=== PATIENT | male | born 1990 | race Caucasian/White ===

== ENCOUNTER 2017-03-29 15:42 | Inpatient (IN) | payer BC, OTHER ==
[~2017-03-29] VITALS: Ht 152.4 cm; Wt 61.2 kg
[2017-03-29 16:14] VITALS: BP 124/68
--- NOTE | 2017-03-29 16:33 | NUR ---
INTAKE ASSESSMENT RECEIVED PT AOX4, STABLE, AND AMBULATORY. VITAL SIGNS WNL. PT REPORTS NO ALLERGIES AND NO SEIZURE HISTORY. PT REPORTS NO HOME MEDICATIONS. EXPLAINED UNIT PROTOCOLS AND POLICIES AND PT VERBALIZED UNDERSTANDING. WILL ADMIT PT UPON ARRIVAL TO 3RD FLOOR.
[2017-03-29 16:53] LABS: BASOPHILS # (AUTO) 0.1 K/uL (0.0-8.0); BASOPHILS % (AUTO) 0.7 % (0.0-2.0); EOSINOPHILS # (AUTO) 0.3 K/uL (0.0-0.7); EOSINOPHILS % (AUTO) 3.5 % (0.0-7.0); HEMATOCRIT 50.1 % (40-50); HEMOGLOBIN 16.8 G/DL (14.0-18.0); LYMPHOCYTES # (AUTO) 2.2 K/UL (0.8-4.8); LYMPHOCYTES % (AUTO) 24.4 % (20.5-51.5); MEAN CORPUSCULAR HEMOGLOBIN 31.4 UUG (27.0-31.0); MEAN CORPUSCULAR HGB CONC 34 g/dL (32.0-37.0); MEAN CORPUSCULAR VOLUME 93.9 FL (82.0-92.0); MONOCYTES # (AUTO) 0.7 K/UL (0.1-1.30); MONOCYTES % (AUTO) 7.6 % (0.0-11.0); NEUTROPHILS # (AUTO) 5.9 K/UL (1.8-8.9); NEUTROPHILS % (AUTO) 63.8 % (38.5-71.5); PLATELET COUNT (AUTO) 209 K/UL (150-450); RED BLOOD CELL COUNT(AUTO) 5.33 MIL/UL (4.7-6.1); WHITE BLOOD COUNT (AUTO) 9.2 K/UL (4.0-11.2)
[2017-03-29 16:57] LABS: ALANINE AMINOTRANSFERASE 102 U/L (16-63); ALKALINE PHOSPHATASE 74 U/L (50-136); AMYLASE 39 U/L (25-115); ASPARTATE AMINOTRANSFERASE 49 U/L (15-37); BILIRUBIN,TOTAL 0.9 mg/dL (0.2-1.0); CARBON DIOXIDE 32 mmol/L (21-32); CHLORIDE 101 mmol/L (98-107); CREATININE 1.1 mg/dL (0.6-1.3); GLUCOSE 92 mg/dL (74-106); MAGNESIUM 2.1 mg/dL (1.8-2.4); POTASSIUM 3.7 mmol/L (3.5-5.1); TOTAL PROTEIN, SERUM 8.3 g/dL (6.4-8.2); UREA NITROGEN, BLOOD 12 mg/dL (7-18)
[2017-03-29 16:58] LABS: *AMPHETAMINE, URINE POSITIVE (NEGATIVE); *BARBITURATE, URINE NEGATIVE (NEGATIVE); *CANNABINOID, URINE NEGATIVE (NEGATIVE); *COCCAINE, URINE POSITIVE (NEGATIVE); *OPIATE, URINE NEGATIVE (NEGATIVE); *PHENCYCLIDINE SCREEN,URINE NEGATIVE (NEGATIVE)
[2017-03-29] MEDS ORDERED: IBUP-1955 PO (16:58)
[2017-03-29 17:11] LABS: ETHANOL < 3 MG/DL (0-0)
--- NOTE | 2017-03-29 17:14 | NUR ---
ADMISSION NOTE VITAL SIGNS BP 124/68 HR 98 TEMP 98.2 O2 98% RR 16 PAIN 0/10 HEIGHT 5'6 WEIGHT 135 LBS ALLERGIES NKA Patient is a 26 year old male admitted to [facility] on 03/29/17 at 1630. Pt is under the care of Dr. Davis for etoh and meth dependence. Patient denies S/I or H/I at this time. Patient denies being hospitalized in the last 30 days. He denies chest pain or SOB. Patient reports history of Hepatitic C. Upon assessment, patient's skin is intact. CIWA 9 upon admission. AOX4 and able to answer necessary questions for admission process. Patient is full code and regular diet. Patient denies seizure history. Patient denies having a PCP. Breathing is even and unlabored. Patient ambulates with steady gait. patient reports normal bowel habits. Patient reports hx from December to 1 week ago at [facility]. Patient reports being homeless. Patient smokes about a pack of cigarettes per day. Dr. Davis has assessed patient and placed him under observation. All needs met. All safety measures in place. Patient has been oriented to staff, room, and unit. Bed in lowest position, locked, side rails up x3 and padded, call light within reach. Will monitor. Substance Abuse ETOH 1 pint- 1/5th per day for about 3 weeks, last drank 1 pint 03/28/17 METH 2-3 grams per day for 3 weeks, last drank 3 grams 03/28/17
--- NOTE | 2017-03-29 18:41 | NUR ---
END OF SHIFT NOTE ADMITTED PT THIS SHIFT. PT ADMITTED FOR ETOH AND METH DEPENDENCE. PATIENT GIVEN ATIVAN ORDERED. CIWA 9 UPON ADMISSION. PT RESTING IN BED. ALL NEEDS MET. ALL SAFETY MEASURES IN PLACE. PT DENIES S/I OR H/I. VITALS WNL. WILL ENDORSE TO NIGHT NURSE.
[2017-03-29 20:00] VITALS: BP 109/67
--- NOTE | 2017-03-29 20:00 | NUR ---
1999 Patient received sleeping comfortably in low semi-fowlers position of comfort, with eyes closed and respirations quiet, deep at 12. Patient aroused for V/S and nurse assess. Patient responds to nurse's greeting and introduction with delayed smile, eye contact and slow, flat, " Oh, Hi. Yeah, I know where I am. I'm in the detox place". Patient is oriented to person, place and his personal situation. Patient reoriented to day, date and time. Patient states, " I haven't slept in about three days. That's what happens when you do speed". Patient's color is clay-pink and his skin is clean, dry, warm and intact. Patient offers no complaints or requests for anything. Patient denies any pain at this time. Patient states that he has taken fluids ad celso and eaten a little bit of his Regular diet meal tray with no gastric issue so far, since his admission. Vital signs are: 98.1-91-16 109/67, O2 Sat 98%, CIWA 2. Patient was admitted today, 03/29/17 for Alcohol and Methamphetamine withdrawal and he has been started on a 5-Day Ativan medication taper, which he is tolerating well so far. Patient is cooperative and verbally appropriate when interacting with nurse, though his overall mood/affect is slightly withdrawn, flat. Patient moves all his extremities fully WNL. Patient states that he is just 'going to get lots of rest tonight'. Fall/Seizure precautions in place. Bed is locked and in lowest position, padded bed rails are up X 2 and call light within patient's easy reach.
[2017-03-30] VITALS: BP 130/85
--- NOTE | 2017-03-30 | NUR ---
V/S are: 98.4-98-16 130/85, O2 Sat 99%. Patient too sleepy to do CIWA assessment at this time.
[2017-03-30 04:00] VITALS: BP 113/67
--- NOTE | 2017-03-30 04:00 | NUR ---
V/S are: 98.2-80-14 113/67, O2 Sat 99%, CIWA 5. No requests or complaints voiced at this time.
--- NOTE | 2017-03-30 05:05 | NUR ---
PRN MEDICATION: Prn Ativan 1 mg p.o. given per c/o generalized body aches, light sweats and anxiety. CIWA 5.
--- NOTE | 2017-03-30 05:06 | NUR ---
PRN MEDICATION: Prn Motrin 400 mg p.o. given per specific c/o headache, backache 9/10 pain scale.
--- NOTE | 2017-03-30 06:06 | NUR ---
REASSESSMENT PRN MEDICATION: Patient is sleeping soundly with eyes closed and respirations quiet, even, unlabored at 12.
--- NOTE | 2017-03-30 06:30 | NUR ---
0630 Patient slept a total of 7 hours and 45 minutes. Total intake was 1,500 ml p.o. and he had 2 voids and no stools. Prn medication given noted separately per floor protocol. V/SS afebrile, last CIWA 5 at 0400. Patient is presently sleeping comfortably in stable condition with eyes closed and respirations even, unlabored at 12.
--- NOTE | 2017-03-30 07:05 | NUR ---
Patient is sleeping soundly. CIWA assess deferred.
--- NOTE | 2017-03-30 07:43 | NUR ---
START OF SHIFT NOTE Received pt aox4. Patient reports body aches, irritability, and sleeping on and off during the night. Pt is on 5 Day Ativan taper. PRN Motrin and Ativan given per night nurse. Last CIWA 5 per night nurse. Encouraged pt to increase fluid intake and rest during shift. Encouraged pt to notify RN if S/S of W/D worsen. Will monitor closely and offer help.
[2017-03-30 08:00] VITALS: BP 122/80
[2017-03-30 12:00] VITALS: BP 120/71
[2017-03-30 16:00] VITALS: BP 121/84
--- NOTE | 2017-03-30 18:35 | NUR ---
End of Shift Note: Patient continued on Ativan taper and tolerating well. No PRNs given during shift as detox meds are effective. Last CIWA 4. Patient denies S/I or H/I. Patient rested in room and did not attend groups or activities. All needs met. All safety measures in place. Vital signs stable. Will endorse to night nurse.
[2017-03-30 20:00] VITALS: BP 134/79
--- NOTE | 2017-03-30 20:00 | NUR ---
1999 Patient received awake, alert and ambulating in hallway near his room # 322. Gait is slightly slow but steady. Upon seeing nurse, patient states that he is "feeling better today" and he has gotten 'lots of needed rest' since he was admitted to [facility] yesterday. Patient states further that he is eating his Regular diet meal trays and taking various fluids ad celso with no gastric issues thus far. Patient denies any pain presently and he offers no requests for anything. Vital signs are : 98.8-101-16 134/79, O2 Sat 98%, CIWA 5. Patient is oriented to person, place, day, date, time and his personal situation. Patient has not attended any [facility] groups yet. Patient was admitted on 03/29/17 for Alcohol and Methamphetamine withdrawal and he is currently on a 5-Day Ativan medication taper, which he is apparently tolerating well. Patient is cooperative and verbally appropriate when interacting with nurse and he freely verbalizes much self-disclosure to nurse, about his addiction, how he feels and about his life in general. Patient given positive encouragement and praise for his decision to try to get sober and healthy. Patient then gave nurse a head nod and smile. Bed is locked and in lowest position, padded bed rails are up X 2 and call light within patient's easy reach.
--- NOTE | 2017-03-30 20:39 | NUR ---
PRN MEDICATION: Prn Motrin 400 mg p.o. given per c/o generalized body aches, 7/10 pain scale.
--- NOTE | 2017-03-30 21:39 | NUR ---
REASSESSMENT PRN MEDICATION: Patient is downstairs on hospital patio for a smoke break. Unable to assess patient at this time.
[2017-03-31] VITALS: BP 110/70
--- NOTE | 2017-03-31 | NUR ---
V/S are: 98.7-76-16 110/70, O2 Sat 100%, CIWA 2.
--- NOTE | 2017-03-31 04:00 | NUR ---
Patient refused to be awakened for V/S, CIWA to be done at this time.
--- NOTE | 2017-03-31 06:30 | NUR ---
0630 Patient slept a total of 6 hours and he had 2 voids and no stools. Total intake was 591 ml p.o. Prn Medication given noted separately per floor protocol. V/SS afebrile, last CIWA was 2 at 0000. Patient is presently resting comfortably in stable condition with eyes closed and respirations unlabored at 12.
--- NOTE | 2017-03-31 07:05 | NUR ---
Patient not aroused for CIWA, which is to be done Q4hr while awake.
[2017-03-31 08:00] VITALS: BP 126/84
--- NOTE | 2017-03-31 08:35 | NUR ---
START OF SHIFT NOTE 26 year old male admitted to [facility] on 03/29/17. Pt is under the care of Dr. Davis for ETOH and meth dependence. History of Hepatitis C. Skin is intact. Patient is full code and regular diet. Patient denies seizure history. Patient reports hx from December to 1 week ago at [facility]. Patient reports being homeless. On day 3 of the 5 day Ativan taper. Received report from night nurse. Last CIWA 4. Slept 6 hours. Was given Motrin x 1 for pain and was effective. 0730 Pt alert and oriented, states having pain in back and legs. Offered PRN Motrin with am meds and Pt accepted. Last CIWA 4. Slept 6 hours. All safety measures in place. Bed in lowest position, locked, side rails up x3 and padded, call light within reach. Will monitor.
--- NOTE | 2017-03-31 08:43 | NUR ---
PRN MEDICATION ADMINISTRATION Pt complaint of leg and back pain 12/26. Given Motrin PRN dose. Will reassess for effectiveness.
--- NOTE | 2017-03-31 09:43 | NUR ---
PRN MEDICATION REASSESSMENT Pt ambulating in room and hallway, no facial grimacing, no apparent distress.
[2017-03-31 11:11] LABS: HEPATITIS B SURFACE AG Negative (Negative)
[2017-03-31 13:42] VITALS: BP 129/83
--- NOTE | 2017-03-31 14:16 | NUR ---
Pt reports pain 7/10 in legs and thighs, anxiety 10/10. Offered PRN clonidine and Motrin or Tylenol and Pt refused.
[2017-03-31 16:00] VITALS: BP 108/76
--- NOTE | 2017-03-31 18:55 | NUR ---
END OF SHIFT Pt 26 y/o male admitted for substance dependence. Pt alert and oriented to name, place, and time. Perrla. Skin warm and slightly moist to touch. Respirations even and unlabored. Bilateral hand tremors noted slightly. Pt with periods of anxiety throughout the morning. Pt with flat affect noted. Pt selective with group activity today. Pt was seen by MD today Pt medication compliant and tolerated well. No ASE noted. Bed on lowest position with side rails x2 up for safety. Call light within reach. No distress noted at this time.
--- NOTE | 2017-03-31 19:15 | NUR ---
START OF SHIFT NOTE : 26 year old male admitted to [facility] on 03/29/17. Pt is under the care of Dr. Davis for ETOH and meth dependence. History of Hepatitis C. Skin is intact. Patient is full code and regular diet. Patient denies seizure history. Patient reports hx from December to 1 week ago at [facility]. Patient reports being homeless. Pt. is on 5 day Ativan taper, started on 03/29, tolerating well. Last CIWA=3 at 16:00. All safety measures in place. Bed in lowest position, locked, side rails up x3 and padded, call light within reach. Will monitor.
[2017-03-31 20:00] VITALS: BP 120/76
--- NOTE | 2017-04-01 06:47 | NUR ---
END OF SHIFT NOTE : 26 year old male admitted to [facility] on 03/29/17. Pt is under the care of Dr. Davis for ETOH and meth dependence. History of Hepatitis C. Skin is intact. Patient is full code and regular diet. Patient denies seizure history. Patient reports hx from December to 1 week ago at [facility]. Patient reports being homeless. Pt. is on 5 day Ativan taper, started on 03/29, tolerating well Pt remains compliant with the treatment plan. No PRNs were given during my shift. V/S remain WNL. RR=16, even and unlabored, lungs clear upon auscultation, abdomen soft and non- distended. Pt denies nausea, vomiting and diarrhea. LAST CIWA=3 at 0400 , INTAKE= 1596 ml, voided x1 , slept 7 hours. Safety measures in place : bed on lowest position with side rails x2 up for safety, call light within reach. Will continue to monitor closely and offer help.
[2017-04-01 08:00] VITALS: BP 125/71
--- NOTE | 2017-04-01 09:21 | NUR ---
START OF SHIFT Received report from rn night nurse. Patient is 26 year old male admitted for medically supervised withdrawal from alcohol. Patient is full code with NKA. On assessment this AM: CIWA: 2. Denies SOB, chest pain. Patients vitals signs: 125/71, HR 80, R 18, Temp 98.5, pain 0/10. Reports mild anxiety. Refused all his AM meds. No PRN given. Wants to speak to the doctor about getting discharged. was notified. PPD skin test read on LFA, negative result. Patient was encouraged to attend group meetings today. Will continue to monitor patient. Addendum: 04/01/17 at 1103 by NEAL JACOB RN Patient is on modified Ativan taper; however, pt. refused his 9am med, aware.
[2017-04-01 12:00] VITALS: BP 119/66
[2017-04-01 16:00] VITALS: BP 121/80
[2017-04-01] MEDS ORDERED: HYDR-3895 PO (17:05)
--- NOTE | 2017-04-01 18:36 | NUR ---
END OF SHIFT Patient is 26 year old male admitted for medically supervised withdrawal from alcohol. Patient is full code with NKA. Patient on modified ativan taper. Most recent CIWA: 1, reports mild anxiety. Refused his AM meds. No PRN given. Spoke to MD and possible discharge tomorrow. PPD skin test read on LFA, negative result. no PRN given. Ambulating with steady gait, no falls noted. Patient escorted to [facility] for smoke break. BM X1. night club managernight club manager will continue to monitor patient.
[2017-04-01 20:00] VITALS: BP 119/75
--- NOTE | 2017-04-01 20:00 | NUR ---
Start of shift Received 26 year old male admitted for dependence from alcohol. Patient is full code with NKA. Px is scheduled to be D/C tomorrow 04/02/2017. Encouraged adequate PO fluid intake as tolerated. CIWA is 1 at 2000H. Complained of toothache 08/28. Patients safety measures in place. Call light kept within reach. Will continue to monitor patient.
--- NOTE | 2017-04-01 21:47 | NUR ---
PRN Ibuprofen Px complained of toothache. Ibuprofen 400mg 1 tab given PO as PRN med. Will continue to monitor.
--- NOTE | 2017-04-01 22:47 | NUR ---
Pain reassessment Px's toothhache decresed to 0/10 after an hour of administration of Ibuprofen 400mg 1 tab PO. Will continue to monitor.
[2017-04-02] VITALS: BP 90/60
[2017-04-02 04:00] VITALS: BP 96/58
[2017-04-02 08:00] VITALS: BP 123/74
--- NOTE | 2017-04-02 08:09 | NUR ---
START OF SHIFT Pt 26 y/o male admitted for substance dependence. Pt received in room awake watching television. Pt alert and oriented to name, place, and time. Perrla. Skin warm and dry to touch. Respirations even and unlabored. Pt with flat affect noted. It was reported that pt slept for 4 hours last night. Pt is scheduled to be discharged later this afternoon. Bed on lowest position with side rails x2 up for safety. Call light within reach. No distress noted at this time.
--- NOTE | 2017-04-02 10:31 | NUR ---
DISCHARGE Pt discharged via private transport. Pt alert and oriented to name, place, and time. Perrla. Skin warm and dry to touch. Respirations even and unlabored. VS wnl. All belongings, discharge papers, belongings from cabinet and cassette packed in pt bag. Pt excited about discharge since 729. No distress noted.
== END 2017-04-02 10:30 | disposition other institution (70) | DRG 897 ==
LOC: SRC 15:43
PROVIDERS: ADMIT Internal Medicine; ATTEND Internal Medicine
PROC: HZ2ZZZZ Detoxification Services for Substance Abuse Treatment (ICD-10-PCS; principal; 2017-03-29)
DX: F10.230 Alcohol dependence with withdrawal, uncomplicated (principal); F15.23 Other stimulant dependence with withdrawal; Y90.9 Presence of alcohol in blood, level not specified; Z59.0 Homelessness; Z81.8 Family history of other mental and behavioral disorders; Z81.1 Family history of alcohol abuse and dependence; F41.9 Anxiety disorder, unspecified; F17.210 Nicotine dependence, cigarettes, uncomplicated; B19.20 Unspecified viral hepatitis C without hepatic coma; Z59.1 Inadequate housing
CPT/HCPCS: 36415; 80307; 80324; 80353; 83735; 85025; 86580; 86592; 86705; 86803; 87340; 87806; A4663; G0480; J3411